=== PATIENT | male | born 2000 | race Two or more races ===

== ENCOUNTER 2021-08-28 11:44 | Emergency (ER) | payer BC, OTHER ==
[2021-08-28 11:59] VITALS: BP 141/78; PULSE 130
--- NOTE | 2021-08-28 13:42 | CR ---
Chest: Frontal view of the chest was obtained. Comparison: Prior chest x-ray of 12/15/16. Heart size and mediastinum are normal. Lungs are clear with no acute parenchymal change. Bony structures show nothing acute. Impression: 1. Nothing acute is seen on frontal chest x-ray. Diagnostic code #1
--- NOTE | 2021-08-28 14:02 | EDM.PDOC ---
ED HPI GENERAL MEDICAL PROBLEM - General Chief Complaint: ENT Problem Stated Complaint: COVID +\THROAT SWOLLEN Time Seen by Provider: 08/28/21 12:11 Source of Information: Reports: Patient, RN Notes Reviewed History Limitations: Reports: No Limitations - History of Present Illness INITIAL COMMENTS - FREE TEXT/NARRATIVE: Patient is a 21-year-old male presenting to the emergency department with complaints of cough, sore throat, ear pain, nasal congestion and fatigue. Symptoms began yesterday. He was diagnosed Covid positive on 10 August. States during his Covid illness, he only had headaches. Did not have any respiratory symptoms at that time. He denies any fever, chills, nausea, vomiting, or diarrhea. He has no chronic underlying medical conditions. Throat Pain Score (Numeric/FACES): 4 - Related Data Allergies Allergy/AdvReac Type Severity Reaction Status Date / Time azithromycin [From Zithromax] Allergy Rash Verified 08/28/21 12:00 Penicillins Allergy Rash Verified 08/28/21 12:00 Sulfa (Sulfonamide Allergy Rash Verified 08/28/21 12:00 Antibiotics) Home Meds: Home Meds . [No Known Home Meds] 08/28/21 [History] Past Medical History - Past Health History Medical/Surgical History: Denies Medical/Surgical History Musculoskeletal History: Reports: Other (See Below) Other Musculoskeletal History: ankle sprain Psychiatric History: Reports: ADD - Infectious Disease History Infectious Disease History: Reports: Novel Coronavirus - Past Surgical History HEENT Surgical History: Reports: Tonsillectomy GI Surgical History: Reports: Appendectomy Social & Family History - Family History Family Medical History: No Pertinent Family History - Tobacco Use Tobacco Use Status *Q: Never Tobacco User Second Hand Smoke Exposure: No - Caffeine Use Caffeine Use: Reports: Soda - Recreational Drug Use Recreational Drug Use: No - Living Situation & Occupation Living situation: Reports: Single Occupation: Student ED ROS ENT - Review of Systems Review Of Systems: Comprehensive ROS is negative, except as noted in HPI. ED EXAM, ENT - Physical Exam Exam: See Below Exam Limited By: No Limitations General Appearance: Alert, WD/WN, No Apparent Distress Ears: Normal External Exam, Normal Canal, Hearing Grossly Normal, Normal TMs Mouth/Throat: Normal Inspection, Normal Gums, Normal Lips, Normal Oropharynx, Normal Teeth Respiratory/Chest: No Respiratory Distress, Lungs Clear, Normal Breath Sounds, No Accessory Muscle Use, Chest Non-Tender Cardiovascular: Normal Peripheral Pulses, Regular Rate, Rhythm, No Edema, No Gallop, No JVD, No Murmur, No Rub GI/Abdominal: Normal Bowel Sounds, Soft, Non-Tender, No Organomegaly, No D istention, No Abnormal Bruit, No Mass Neurological: Alert, Oriented, CN II-XII Intact, Normal Cognition, Normal Gait, Normal Reflexes, No Motor/Sensory Deficits Psychiatric: Normal Affect, Normal Mood Skin: Warm, Dry, Intact, Normal Color, No Rash Course - Vital Signs Last Recorded V/S: Last Vital Signs Temp 99.7 F 08/28/21 11:59 Pulse 130 H 08/28/21 11:59 Resp 20 08/28/21 11:59 BP 141/78 H 08/28/21 11:59 Pulse Ox 96 08/28/21 11:59 - Orders/Labs/Meds Orders: Active Orders 24 hr Category Date Time Status Isolation [COMM] Routine Oth 08/28/21 12:04 Ordered Labs: Laboratory Tests 08/28/21 08/28/21 08/28/21 Range/Units 12:02 13:07 13:07 WBC 6.44 (4.23-9.07) K/mm3 RBC 5.16 (4.63-6.08) M/mm3 Hgb 15.1 (13.7-17.5) gm/dl Hct 44.7 (40.1-51.0) % MCV 86.6 (79.0-92.2) fl MCH 29.3 (25.7-32.2) pg MCHC 33.8 (32.2-35.5) g/dl RDW Std Deviation 40.6 (35.1-43.9) fL Plt Count 219 (163-337) K/mm3 MPV 10.8 (9.4-12.3) fl Neut % (Auto) 80.0 H (34.0-67.9) % Lymph % (Auto) 10.2 L (21.8-53.1) % Iron % (Auto) 9.3 (5.3-12.2) % Eos % (Auto) 0.3 L (0.8-7.0) Baso % (Auto) 0.2 (0.1-1.2) % Neut # (Auto) 5.15 (1.78-5.38) K/mm3 Lymph # (Auto) 0.66 L (1.32-3.57) K/mm3 Iron # (Auto) 0.60 (0.30-0.82) K/mm3 Eos # (Auto) 0.02 L (0.04-0.54) K/mm3 Baso # (Auto) 0.01 (0.01-0.08) K/mm3 Sodium 138 (136-145) mEq/L Potassium 3.6 (3.5-5.1) mEq/L Chloride 104 (98-107) mEq/L Carbon Dioxide 24 (21-32) mEq/L Anion Gap 13.6 (5-15) BUN 14 (7-18) mg/dL Creatinine 1.0 (0.7-1.3) mg/dL Est Cr Clr Drug Dosing 137.31 mL/min Estimated GFR (MDRD) > 60 (>60) mL/min BUN/Creatinine Ratio 14.0 (14-18) Glucose 100 H (70-99) mg/dL Calcium 8.3 L (8.5-10.1) mg/dL Total Bilirubin 0.3 (0.2-1.0) mg/dL AST 17 (15-37) U/L ALT 31 (16-63) U/L Alkaline Phosphatase 59 (46-116) U/L C-Reactive Protein 1.9 H* (<1.0) mg/dL Total Protein 7.2 (6.4-8.2) g/dl Albumin 4.1 (3.4-5.0) g/dl Globulin 3.1 gm/dL Albumin/Globulin Ratio 1.3 (1-2) Group A Strep (PCR) Not detected (NOT DETECT) - Re-Assessments/Exams Free Text/Narrative Re-Assessment/Exam: Patient is a 21-year-old male presenting to the emergency department complaints of cough, sore throat, fatigue, nasal congestion, sore throat, and ear pain. Symptoms began yesterday. He was diagnosed with Covid at 10 August and had only headache with this. Exam is unremarkable. Lung sounds are clear to auscultation. I ordered chest x-ray, influenza testing, and strep testing. 08/28/21 14:00 Hematology is unremarkable. Influenza and strep are negative. Discussed with patient that he is likely suffering from viral illness most likely not related to Covid. Discussed symptomatic treatment. Discharge instructions as documented. Departure - Departure Time of Disposition: 14:01 Disposition: Home, Self-Care 01 Condition: Good Clinical Impression: Viral respiratory illness - Discharge Information *PRESCRIPTION DRUG MONITORING PROGRAM REVIEWED*: No *COPY OF PRESCRIPTION DRUG MONITORING REPORT IN PATIENT JASWINDER: No Instructions: Viral Illness, Adult Referrals: Sarah Boggs PA-C [Primary Care Provider] - Additional Instructions: You were seen in the emergency department today for sore throat, cough, fatigue, nasal congestion, and ear pain. Work-up included blood work, chest x-ray, and flu and strep testing. Results of your work-up were found to be normal. You are likely suffering from viral illness. Recommend Tylenol and ibuprofen as needed for discomfort. You may purchase [id number] Flonase nasal spray to help with your nasal congestion and ear discomfort. If you experience any new or worsening symptoms, please not hesitate to return to the emergency department for reevaluation. Sepsis Event Note (ED) - Focused Exam Vital Signs: Vital Signs Temp Pulse Resp BP Pulse Ox 08/28/21 11:59 99.7 F 130 H 20 141/78 H 96
== END 2021-08-28 14:09 | disposition home or self-care (01) ==
LOC: JD.ED 11:44
DX: B34.9 Viral infection, unspecified (principal); Z88.0 Allergy status to penicillin; Z88.2 Allergy status to sulfonamides; Z88.1 Allergy status to other antibiotic agents; Z86.16 Personal history of COVID-19
CPT/HCPCS: 36415; 71045; 71045-26; 80053; 85025; 86140; 87651-QW; 87804; 99283-25

== ENCOUNTER 2021-10-26 19:59 | Emergency (ER) | payer OTHER ==
[2021-10-26 20:51] VITALS: BP 151/79; PULSE 102
[2021-10-26] MEDS ORDERED: Acetaminophen 325 MG Tab PO ONE (21:14)
--- NOTE | 2021-10-26 21:17 | EDM.PDOC ---
<DadaEmmanuel vincent Suri - Last Filed: 10/27/21 03:51> ED HPI GENERAL MEDICAL PROBLEM - General Chief Complaint: Chemical Exposure Stated Complaint: CARBON MONOXIDE EXPOSURE Time Seen by Provider: 10/26/21 20:51 - Related Data Allergies Allergy/AdvReac Type Severity Reaction Status Date / Time azithromycin [From Zithromax] Allergy Rash Verified 10/26/21 23:45 Penicillins Allergy Rash Verified 10/26/21 23:45 Sulfa (Sulfonamide Allergy Rash Verified 10/26/21 23:45 Antibiotics) Home Meds: Home Meds . [No Known Home Meds] 08/28/21 [History] #1 Interpretation EKG Date: 10/27/21 Rhythm: NSR [place]: Normal P-Wave: Present QRS: Normal ST-T: Normal QT: Normal Comparison: NA - No Prior EKG EKG Interpretation Comments: Normal EKG Course - Re-Assessments/Exams Free Text/Narrative Re-Assessment/Exam: 10/27/21 03:51 Change the patient to nonrebreather 15 L. And did check an EKG that was nondiagnostic basically normal tracing. His carboxyhemoglobin continues to trend down at 00:50 it was five and at 03:00 it was 2.3 this is satisfactory for discharge. His exposure he does not believe was longer than an hour. Case was reviewed with poison control who agrees with the disposition. Departure - Departure Disposition: Home, Self-Care 01 Clinical Impression: Carbon monoxide poisoning Qualifiers: Encounter type: initial encounter Injury intent: accidental or unintentional Qualified Code(s): T58.91XA - Toxic effect of carbon monoxide from unspecified source, accidental (unintentional), initial encounter - Discharge Information Instructions: Preventing Carbon Monoxide Poisoning Referrals: Sarah Boggs PA-C [Primary Care Provider] - Forms: ED Department Discharge Additional Instructions: You were evaluated in the ER today for your carbon monoxide poisoning. You were monitored for some time and placed on oxygen and you did have symptomatic improvement before leaving the ER. You may take 500 mg Tylenol or 600 mg ibuprofen every 6 hours as needed for ongoing headache management. Do not hesitate to return to the ER if symptoms should change or worsen. <Serenity Murillo V - Last Filed: 10/27/21 22:25> ED HPI GENERAL MEDICAL PROBLEM - General Source of Information: Reports: Patient, RN Notes Reviewed History Limitations: Reports: No Limitations - History of Present Illness INITIAL COMMENTS - FREE TEXT/NARRATIVE: Patient is a 21-year-old male who presents to the ER for evaluation of a Carbon monoxide exposure. States he was at work, and thinks that he was exposed for about an hour to excess carbon monoxide. States that he started feeling lightheaded, so he went into a different part of work, and sat down. Coming again was feeling dizzy and lightheaded so he did not drive home from work, but when he got home at around 3 PM, he slept until about 6:30 PM. States that he still feeling slightly lightheaded or dizzy, now has a headache. States that he has had carbon monoxide exposure in the past and knows what the symptoms are. Patient denies any other sick-like symptoms, fever/chills, cough/shortness of breath, states he has had no diarrhea. Had one episode of nausea and vomiting. Frontal Headache Pain Score (Numeric/FACES): 10 Past Medical History - Past Health History Medical/Surgical History: Denies Medical/Surgical History Musculoskeletal History: Reports: Other (See Below) Other Musculoskeletal History: ankle sprain Psychiatric History: Reports: ADD, PTSD - Infectious Disease History Infectious Disease History: Reports: None, Novel Coronavirus - Past Surgical History HEENT Surgical History: Reports: Tonsillectomy GI Surgical History: Reports: Appendectomy Social & Family History - Family History Family Medical History: No Pertinent Family History - Tobacco Use Tobacco Use Status *Q: Never Tobacco User - Caffeine Use Caffeine Use: Reports: Soda - Recreational Drug Use Recreational Drug Use: No - Living Situation & Occupation Living situation: Reports: Single Occupation: Student ED ROS GENERAL - Review of Systems Review Of Systems: Comprehensive ROS is negative, except as noted in HPI. ED EXAM, BURN/SMOKE INHALATION - Physical Exam Exam: See Below Exam Limited By: No Limitations General Appearance: Alert, WD/WN, No Apparent Distress Respiratory: No Respiratory Distress, Lungs Clear, Normal Breath Sounds, No Accessory Muscle Use, Chest Non-Tender Cardiovascular: Normal Peripheral Pulses, Regular Rate, Rhythm, No Edema Extremities: Normal Inspection, Normal Capillary Refill Neurological: Alert, Oriented, Normal Cognition, No Motor/Sensory Deficits Psychiatric: Normal Affect, Normal Mood Skin Exam: Warm, Dry, Intact, Normal Color, No Rash Course - Vital Signs Last Recorded V/S: Last Vital Signs Temp 97.8 F 10/26/21 20:50 Pulse 102 H 10/26/21 20:50 Resp 28 H 10/26/21 20:50 BP 151/79 H 10/26/21 20:50 Pulse Ox 96 10/26/21 20:50 - Orders/Labs/Meds Labs: Laboratory Tests 10/26/21 10/26/21 10/27/21 Range/Units 21:00 22:40 00:50 ABG Hemoglobin 14.8 14.7 (12.0-18.0) g/L ABG Oxyhemoglobin 84.1 53.9 ABG Carboxyhemoglobin 15.2 H 10.3 H 5.0 H (0.00-1.50) %THgb ABG Methemoglobin 0.7 1.1 (0.00-1.5) % O2 Delivery Device Nasal cannula Nasal cannula 10/27/21 Range/Units 03:01 ABG Hemoglobin (12.0-18.0) g/L ABG Oxyhemoglobin ABG Carboxyhemoglobin 2.3 H (0.00-1.50) %THgb ABG Methemoglobin (0.00-1.5) % O2 Delivery Device Meds: Medications Discontinued Medications Generic Name Dose Route Start Last Admin Trade Name Freq PRN Reason Stop Dose Admin Acetaminophen 975 mg 10/26/21 21:14 10/26/21 21:30 Acetaminophen 325 Mg Tab PO 10/26/21 21:15 975 mg NOW ONE Administration - Re-Assessments/Exams Free Text/Narrative Re-Assessment/Exam: 10/26/21 21:16 Patient presents to the ER for carbon monoxide poisoning. A coox done at the time of triage demonstrates a carboxyhemoglobin level at 15.2, or our upper limit of normal is 1.5. Per Dr. Parsons's recommendation 4 L via nasal cannula was placed for management we will give him some Tylenol for his headache. Plan will be to observe the patient until he starts feeling a little bit better. This might take a few hours. 10/26/21 22:49 Patient's carboxyhemoglobin level is now at 10.3. Since this is nearing end of my shift I will report off the Dr. Parsons for ongoing management. Departure - Departure Time of Disposition: 22:27 Condition: Good - Discharge Information *PRESCRIPTION DRUG MONITORING PROGRAM REVIEWED*: No *COPY OF PRESCRIPTION DRUG MONITORING REPORT IN PATIENT JASWINDER: No
== END 2021-10-27 04:11 | disposition home or self-care (01) ==
LOC: JD.ED 19:59
DX: T58.91XA Toxic effect of carbon monoxide from unspecified source, accidental (unintentional), initial encounter (principal); Z88.0 Allergy status to penicillin; Z88.1 Allergy status to other antibiotic agents; Z88.2 Allergy status to sulfonamides
CPT/HCPCS: 36600; 82375; 82803; 93005; 99283; A9270

== ENCOUNTER 2023-02-13 05:31 | Emergency (ER) | payer OTHER ==
[2023-02-13] MEDS ORDERED: Ondansetron 4 MG/2 ML SDV IVPUSH ONE (06:15)
[2023-02-13] MEDS ORDERED: Sodium Chloride 0.9% 1,000 ML IV SCH (06:15)
[2023-02-13] MEDS ORDERED: HYDROmorphone 0.5 MG/0.5 ML Syringe IVPUSH ONE (06:15)
[2023-02-13] MEDS ORDERED: Sodium Chloride 0.9% 10 ML Syringe FLUSH PRN (06:15)
[2023-02-13 09:40] VITALS: BP 109/49; PULSE 108
== END 2023-02-13 09:31 | disposition home or self-care (01) ==
LOC: JD.ED 05:31
DX: R10.10 Upper abdominal pain, unspecified (principal); R11.2 Nausea with vomiting, unspecified; Z88.0 Allergy status to penicillin; Z88.1 Allergy status to other antibiotic agents; Z88.2 Allergy status to sulfonamides; Z86.16 Personal history of COVID-19; Z90.49 Acquired absence of other specified parts of digestive tract
CPT/HCPCS: 36415; 74019; 80053; 83690; 85025; 96361; 96374; 96375; 99284; J1170; J2405; J3490; J7030